=== PATIENT | female | born 1980 | race Caucasian/White ===

== ENCOUNTER 2017-04-07 09:45 | Emergency (ER) | payer BC ==
[~2017-04-07] VITALS: Ht 165.1 cm; Wt 77.1 kg
[2017-04-07] MEDS ORDERED: PARAFON FORTE PO (10:21)
[2017-04-07] MEDS ORDERED: NAPROSYN500 MG PO (10:21)
== END 2017-04-07 11:55 | disposition home or self-care (01) ==
LOC: ED 09:45
DX: S20.211A Contusion of right front wall of thorax, initial encounter (principal); R03.0 Elevated blood-pressure reading, without diagnosis of hypertension; W10.8XXA Fall (on) (from) other stairs and steps, initial encounter; Y93.89 Activity, other specified; Y92.89 Other specified places as the place of occurrence of the external cause; Y99.8 Other external cause status

== ENCOUNTER 2018-12-16 08:44 | Emergency (ER) | payer BC ==
[~2018-12-16] VITALS: Ht 165.1 cm; Wt 83.9 kg
[~2018-12-16 08:44] MED LIST: NAPROSYN500 MG PO; PARAFON FORTE PO
[2018-12-16] MEDS ORDERED: AUGMENTIN 875875 MG PO (09:43)
[2018-12-16] MEDS ORDERED: NAPROSYN500 MG PO (09:43)
[2018-12-16] MEDS ORDERED: TYLENOL325 M1 PO (09:43)
== END 2018-12-16 10:15 | disposition home or self-care (01) ==
LOC: ED 08:44
DX: S61.452A Open bite of left hand, initial encounter (principal); W54.0XXA Bitten by dog, initial encounter; Y93.89 Activity, other specified; Y92.89 Other specified places as the place of occurrence of the external cause; Y99.8 Other external cause status

== ENCOUNTER 2024-11-10 13:33 | Emergency (ER) | payer SELFPAY ==
[~2024-11-10] VITALS: Ht 165.1 cm; Wt 72.6 kg
[~2024-11-10 13:33] MED LIST changes: +AUGMENTIN 875875 MG PO; +TYLENOL325 M1 PO
[2024-11-10 14:26] LABS: BILIRUBIN Negative (Negative); BLOOD 2+ (Negative); CLARITY Cloudy (Clear); COLOR Dark Yellow (Yellow); KETONE Negative (Negative); LEUKO ESTERASE 3+ (Negative); NITRITE Positive (Negative); PH 5.5 (4.5-8.0); SPECIFIC GRAVITY 1.010 (1.001-1.030); UROBILINOGEN 1.0 E.U./dl (0.0-1.0)
[2024-11-10 14:42] LABS: BACTERIA 2+; WBC 41-50 wbc/hpf (0-5)
[2024-11-10 15:23] LABS: BASO # 0.1 10*3/uL (0.0-0.1); BASO % 0.4 % (0.0-1.0); EOS # 0.1 10*3/uL (0.0-0.4); EOS % 0.8 % (1.0-4.0); MEAN CELL VOLUME 92.6 fl (81.0-99.0); MEAN CORPUSCULAR HGB 30.5 pg (27.0-31.0); MEAN PLATELET VOLUME 10.0 fl (9.6-12.3); MONO # 0.9 10*3/uL (0.1-1.0); MONO % 7.2 % (3.0-9.0); NEUT # 9.6 10*3/uL (2.3-7.9); NEUT % 76.5 % (47.0-73.0); NUCLEATED RED BLOOD CELL 0.0 % (0.0-0.0); NUCLEATED RED BLOOD CELL 0.0 10*3/uL (0.0-0.0); PLATELET COUNT AUTOMATED 287 10*3/uL (130-400); RED CELL DISTRI WIDTH 13.2 % (0-14.5)
[2024-11-10 15:52] LABS: BUN 8 mg/dl (9-23)
[2024-11-10] MEDS ORDERED: FAMCICLOVIR250 MG PO (18:00)
[2024-11-10] MEDS ORDERED: PREDNISONE20 M1 PO (18:00)
[2024-11-10] MEDS ORDERED: VIBRAMYCIN100 MG PO (18:00)
[2024-11-10] MEDS ORDERED: AZITHROMYCIN 250 MG TAB PO ONE (18:00)
[2024-11-10] MEDS ORDERED: METRONIDAZOLE500 M1 PO (18:00)
== END 2024-11-10 18:38 | disposition home or self-care (01) ==
LOC: ED 13:33
PROVIDERS: Emergency Medicine
DX: N39.0 Urinary tract infection, site not specified (principal); A60.00 Herpesviral infection of urogenital system, unspecified; A64 Unspecified sexually transmitted disease